=== PATIENT | female | born 1945 | race Caucasian/White ===

== ENCOUNTER 2017-04-12 02:45 | Emergency (ER) | payer MEDICARE, OTHER ==
[~2017-04-12] VITALS: Ht 157.5 cm; Wt 86.2 kg
--- NOTE | 2017-04-12 02:50 | NUR ---
PT PLACED IN BED 1 BY EMS.
--- NOTE | 2017-04-12 02:51 | NUR ---
PATIENT IS A 72 Y/O FEMALE BIB [facility] [place] [facility] [place]/O HIGH BLOOD PRESSURE. PER [facility], HER MD CALLED 911 BECAUSE BP WAS IN 200S SYSTOLIC." PT DENIES PAIN. PT DENIES CP, SOB, N/V/D. NOTED [address] NOTED 24 HAND IV. PT AAOX2, RR EVEN/UNLABORED. PT REPOSITIONED FOR COMFORT, BED IN LOWEST POSITION. ER MD DR. GERARDO NOTIFIED. WILL CONTINUE TO MONITOR.
[2017-04-12 02:54] VITALS: BP 136/93
[2017-04-12 03:52] LABS: BASOPHILS # (AUTO) 0.1 K/uL (0.00-0.22); BASOPHILS % (AUTO) 1.3 % (0.0-2.0); EOSINOPHILS # (AUTO) 0.1 K/uL (0-0.4); EOSINOPHILS % (AUTO) 1.5 % (0.0-4.0); HEMATOCRIT 38.2 % (36-48); HEMOGLOBIN 12.3 g/dL (12.0-16.0); LYMPHOCYTES # (AUTO) 1.7 K/uL (2.5-16.5); LYMPHOCYTES % (AUTO) 17.5 % (20.5-51.1); MEAN CORPUSCULAR HEMOGLOBIN 30 pg (27-31); MEAN CORPUSCULAR HGB CONC 32 g/dL (33-37); MEAN CORPUSCULAR VOLUME 93 fL (80-94); MONOCYTES # (AUTO) 0.6 K/uL (0.8-1.0); MONOCYTES % (AUTO) 6.4 % (1.7-9.3); NEUTROPHILS # (AUTO) 7.3 K/uL (1.8-7.7); NEUTROPHILS % (AUTO) 73.3 % (42.2-75.2); PLATELET COUNT (AUTO) 164 K/uL (140-450); RED BLOOD CELL COUNT(AUTO) 4.09 MIL/uL (4.20-5.40); RED CELL DISTRIBUTION WIDTH 14.8 % (11.6-13.7); WHITE BLOOD COUNT (AUTO) 9.8 K/uL (4.8-10.8)
--- NOTE | 2017-04-12 04:00 | NUR ---
PATIENT RESTING AT THIS TIME.
[2017-04-12 04:06] LABS: ANION GAP 15.3 (8-16); CARBON DIOXIDE 23.6 mmol/L (21-32); CHLORIDE 105 mmol/L (98-107); CREATININE 1.1 mg/dL (0.6-1.3); GLUCOSE 176 mg/dL (74-106); POTASSIUM 3.9 mmol/L (3.5-5.1); SODIUM SERUM 140 mmol/L (136-145); UREA NITROGEN, BLOOD 13 mg/dL (7-18)
[2017-04-12 04:11] LABS: PROTHROMBIN TIME 11.3 secs (10.8-13.4)
[2017-04-12 04:12] LABS: ALBUMIN 3.1 g/dL (3.4-5.0); ASPARTATE AMINOTRANSFERASE 40 U/L (15-37); TOTAL BILIRUBIN 0.4 mg/dL (0.0-1.0)
[2017-04-12] MEDS: NACL 0.9% 1,000 ML IV ONE (04:47)
[2017-04-12 05:07] LABS: APPEARANCE,URINE CLOUDY (CLEAR); BILIRUBIN,URINE NEGATIVE (NEGATIVE); BLOOD, URINE 3+ (NEGATIVE); COLOR,URINE YELLOW (YELLOW); LEUKOCYTE ESTERASE ,URINE NEGATIVE (NEGATIVE); NITRITE, URINE NEGATIVE (NEGATIVE); PH,URINE 5.5 (5.0-9.0); UGLUCOSE NEGATIVE (NEGATIVE)
[2017-04-12 05:18] LABS: RBC,URINE >100 /HPF (0-5)
[2017-04-12 05:20] LABS: YEAST,URINE Few /HPF (None Seen)
--- NOTE | 2017-04-12 06:00 | NUR ---
PATIENT RESTING AT THIS TIME.
--- NOTE | 2017-04-12 07:23 | NUR ---
Pt report given to MILAGROS LEES. Transfer of care at this time.
--- NOTE | 2017-04-12 07:23 | NUR ---
SBAR from retail shift supervisor nurse.
--- NOTE | 2017-04-12 07:24 | NUR ---
Pt to be transfered back to facility at 0745 pending the arrival of ambulance for [facility] transport.
--- NOTE | 2017-04-12 07:30 | NUR ---
CHRISTINA dc'd at this time.
--- NOTE | 2017-04-12 08:22 | NUR ---
EMS here to transport pt back to facility at this time.
[2017-04-12 08:36] VITALS: BP 189/72
--- NOTE | 2017-04-12 08:38 | NUR ---
Home with [facility] and review rx with pt as well family state that they understand. Patient discharged with v/s stable. Written and verbal after care instructions given and explained. Patient alert, oriented and verbalized understanding of instructions. Ambulance Transport with to snf. All questions addressed prior to discharge. ID band removed. Patient advised to follow up with PMD. Rx of cipro given. Patient educated on indication of medication including possible reaction and side effects. Opportunity to ask questions provided and answered.
== END 2017-04-12 08:38 ==
LOC: MED 02:45
DX: I10 Essential (primary) hypertension (principal); R41.0 Disorientation, unspecified; Z88.8 Allergy status to other drugs, medicaments and biological substances
CPT/HCPCS: 36415; 70450; 71010; 80053; 81001; 82550; 82553; 83605; 83880; 84484; 85025; 85610; 85730; 87040; 87086; 96360; 99285